=== PATIENT | female | born 1950 | race Caucasian/White ===

== ENCOUNTER → 2017-11-21 | Outpatient (CLI) | payer MEDICARE ==
[~2017-11-21] MED LIST: AMLO10; ASPI81CH PO; ATOR10 PO; ATOR40TA PO; AVANDAMET; B-12; BUME2 PO; BUSP5; CARI350; CARV3.125 PO; CELE100; CLOP75 PO; CYAN1000 PO; CYAN1000I IM; Cartia Xt180 MG PO; Crutch1 EACH MISC; DIABETIC MED; DULO30; DULO60 PO; DULOXETINE HCL60 MG; ESCI10; FENT25TP; FLUZONE HI180 MCG/04 IM; FURO20 PO; GABA100; GLIP10; GLIP5 PO; HYDACE5 PO; HYDCHL25; INSU100I6 SC; INSULANPEN SC; INSULIN; LEVSOD75 PO; METF500 PO; ONDA4 PO; OXYC5 PO; Omeprazole20 M1 PO; PERCOCET; PIOG15 PO; PIOGLITAZONE HC30 MG PO; PREG50 PO; Percocet 5-3251 EACH PO; RAMI1.25; ROSU10TA PO; SERT100 PO; SERT25 PO; Synthroid/Lev0.05 MG PO; TRADJENTA 5 MG; TRULICITY0.75 MG/0. SQ; VALS80 PO; VIT D PO; VITAMIN D35000 UNIT PO; [UNRECOGNIZED DRUG - OTHER]
[2017-11-21 16:59] LABS: Percent Saturation 17.6 % (15.0-50.0)
== END | disposition home or self-care (01) ==
LOC: LAB 11:40 → LAB SHORT 11:40
PROVIDERS: Internal Medicine Hematology & Oncology
DX: D50.9 Iron deficiency anemia, unspecified (principal)
CPT/HCPCS: 82728; 83540; 83550

== ENCOUNTER 2018-11-06 08:46 | Day surgery (SDC) | payer MEDICARE ==
[~2018-11-06] VITALS: Ht 165.1 cm; Wt 118.0 kg
[~2018-11-06 08:46] MED LIST changes: -ATOR40TA PO; +CHOL10002 PO; -CYAN1000I IM; +CYAN500 PO; +GABA100 PO; +Isosorbide Mono30 MG PO; +Lopressor 25 mg25 MG PO; -Omeprazole20 M1 PO; +PANT40 PO; -VITAMIN D35000 UNIT PO
--- NOTE | 2018-11-06 10:19 | NUR ---
PT RETURN TO RECOVERY. AWAKE, ALERT, CONVERSING WITH STAFF. SISTER AT BEDSIDE. NO C/O OF PAIN OR DISCOMFORT. NO BLEEDING OR SWELLING NOTED.
--- NOTE | 2018-11-06 12:26 | NUR ---
SUMMARY: PT HAD UNEVENTFUL POST OPERATIVE COURSE. NO C/O PAIN OR DISCOMFORT DURING RECOVERY PERIOD. NO BLEEDING OR SWELLING NOTED TO LEFT UPPER CHEST/NECK AREA. DRESSING IN PLACE AND TAPED FOR SECURITY. PT ATE, DRANK WITHOUT DIFFICULTY. VISITED WITH FAMILY AT BEDSIDE. DISCHARGE INSTRUCTIONS REVIEWED WITH PATIENT BY DARCIE CHOWDARY RN. PT VERBALIZED UNDERSTANDING OF ALL INSTRUCTIONS GIVEN. PT UP TO BEDSIDE TO DRESS WITH SBA FROM SISTER. IV D/C TIP INTACT.
== END 2018-11-06 12:30 | disposition home or self-care (01) ==
LOC: MHTC 08:46
DX: I12.0 Hypertensive chronic kidney disease with stage 5 chronic kidney disease or end stage renal disease (principal); E11.22 Type 2 diabetes mellitus with diabetic chronic kidney disease; N18.6 End stage renal disease; D63.1 Anemia in chronic kidney disease; E11.40 Type 2 diabetes mellitus with diabetic neuropathy, unspecified; E11.51 Type 2 diabetes mellitus with diabetic peripheral angiopathy without gangrene; J44.9 Chronic obstructive pulmonary disease, unspecified; Z79.899 Other long term (current) drug therapy
CPT/HCPCS: 99152; C1750; C1769; J1644; J2250; J3010; J7040

== ENCOUNTER 2020-11-19 08:24 | Day surgery (SDC) | payer MEDICARE ==
[~2020-11-19] VITALS: Ht 165.1 cm; Wt 109.0 kg
[~2020-11-19 08:24] MED LIST changes: +BASAGLAR K100 UNIT/1 SC; -INSULANPEN SC; +OMEP20ER PO
--- NOTE | 2020-11-19 12:44 | NUR ---
PATIENT ARRIVED BACK TO THE RECOVERY ROOM VIA RECLINER. SBAR RECEIVED FROM YOSSI AUGUSTINE. CLOTH DOT X 2 TO THE RIGHT FA/AC AREA. BRUIT FELT OVER THE LOWER CLOTH DOT. MONITOR APPLIED AND MEAL SERVED. PATIENT AWAKE. VVS. NO PAIN NOTED.
--- NOTE | 2020-11-19 14:11 | NUR ---
PATIENT DISCHARGED HOME VIA WHEELCHAIR WITH FAMILY FRIEND MARKET DEVELOPER.
== END 2020-11-19 15:16 | disposition home or self-care (01) ==
LOC: MHTC 08:24
DX: T82.9XXA Unspecified complication of cardiac and vascular prosthetic device, implant and graft, initial encounter (principal); I12.0 Hypertensive chronic kidney disease with stage 5 chronic kidney disease or end stage renal disease; N18.6 End stage renal disease; I45.10 Unspecified right bundle-branch block; E11.22 Type 2 diabetes mellitus with diabetic chronic kidney disease; E11.40 Type 2 diabetes mellitus with diabetic neuropathy, unspecified; J44.9 Chronic obstructive pulmonary disease, unspecified; E21.3 Hyperparathyroidism, unspecified; Z79.899 Other long term (current) drug therapy
CPT/HCPCS: 36905; 76937; 82947; 93005; 93010; 99152; 99153; C1725; C1769; C1887; C1894; C2623; J1644; J2250; J3010; J7030; J7040; J7050; Q9967

== ENCOUNTER 2021-05-03 17:03 | Inpatient (IN) | payer MEDICARE ==
[~2021-05-03] VITALS: Ht 167.6 cm; Wt 108.9 kg
[~2021-05-03 17:03] MED LIST changes: -BASAGLAR K100 UNIT/1 SC; -CLOP75 PO; -GABA100 PO; -Isosorbide Mono30 MG PO; -LEVSOD75 PO; -OMEP20ER PO; -TRULICITY0.75 MG/0. SQ
[2021-05-03 18:01] LABS: BASOPHILS PERCENT AUTO 0 % (0-2); EOSINOPHILS ABSOLUTE AUTO 0.01 K/mm3 (0.00-0.68); EOSINOPHILS PERCENT AUTO 0 % (0-6); Hematocrit 27.5 % (33.0-51.0); Hemoglobin 9.4 g/dL (11.5-16.0); IMMATURE GRAN ABSOLUTE AUTO 0.01 K/mm3 (0.00-0.10); IMMATURE GRAN PERCENT AUTO 0 % (0-1); LYMPHOCYTES ABSOLUTE AUTO 0.45 K/mm3 (0.84-5.20); LYMPHOCYTES PERCENT AUTO 10 % (21-46); MONOCYTES ABSOLUTE AUTO 0.15 K/mm3 (0.16-1.47); MONOCYTES PERCENT AUTO 4 % (4-13); Mean Corpuscular HGB 32.2 pg (26.0-34.0); Mean Corpuscular HGB Conc 34.2 g/dL (31.5-36.5); Mean Corpuscular Volume 94 fL (80-100); NEUTROPHILS ABSOLUTE AUTO 3.69 K/mm3 (1.96-9.15); NEUTROPHILS PERCENT AUTO 86 % (41-73); Platelet Count 77 K/mm3 (150-400); RDW Coefficient Variation 12.6 % (11.7-14.2); RDW Standard Deviation 43.8 fL (35.1-46.3); Red Blood Cell Count 2.92 M/mm3 (3.80-5.20); White Blood Cell Count 4.31 K/mm3 (4.00-11.30)
[2021-05-03 18:22] LABS: Albumin, Blood 2.2 g/dL (3.4-5.0); Albumin/Globulin Ratio 0.5 (0.8-1.8); Bilirubin, Total 0.4 mg/dL (0.1-1.0); Bun/Creatinine Ratio 5.7 (12.0-20.0); Creatinine, Blood 7.33 mg/dL (0.40-1.00); Globulin, Blood 4.4 g/dL (2.2-4.0); Magnesium, Blood 1.8 mg/dL (1.6-2.4); Potassium, Blood 3.8 mmol/L (3.5-5.5); Total Protein, Blood 6.6 g/dL (6.4-8.2); Troponin I 0.028 ng/mL (0.000-0.040)
[2021-05-03] MEDS ORDERED: TRULICITY0.75 MG/01 SC (19:35)
[2021-05-03] MEDS ORDERED: CLOP75 PO (19:36)
[2021-05-03] MEDS ORDERED: LEVSOD75 PO (19:36)
[2021-05-03] MEDS ORDERED: Isosorbide Mono30 MG PO (19:36)
[2021-05-03] MEDS ORDERED: OMEP20ER PO (19:37)
[2021-05-03] MEDS ORDERED: ZOLOFT100 M8 PO (19:38)
[2021-05-03] MEDS ORDERED: SERT50 PO (19:38)
[2021-05-03] MEDS ORDERED: GABA100 PO (19:38)
[2021-05-03] MEDS ORDERED: BASAGLAR K100 UNIT/3 SC (20:18)
--- NOTE | 2021-05-04 04:23 | NUR ---
SHIFT SUMMARY RECEIVED PT FROM ER NURSE MIRACLE. PT ALERT AND ORIENTED. PT EXPRESSES SHE LOSES HER TASTE AND SMELL. CALL DEVAN العلي. MEDS GIVEN SCHEDULED NO ACUTE DISTRESS AT THIS TIME.
[2021-05-04 04:49] LABS: Hematocrit 25.9 % (33.0-51.0); Hemoglobin 8.7 g/dL (11.5-16.0)
[2021-05-04 05:16] LABS: Anion Gap 10 mmol/L (6-16); Blood Urea Nitrogen 45 mg/dL (8-24); CO2, Blood 25 mmol/L (21-32); Calcium, Blood 7.6 mg/dL (8.5-10.1); Chloride, Blood 104 mmol/L (98-108); Creatinine, Blood 7.54 mg/dL (0.40-1.00); Glomerular Filtration Rate 5 (60-); Glucose, Blood 102 mg/dL (70-99); Magnesium, Blood 1.9 mg/dL (1.6-2.4); Phosphorus, Blood 4.2 mg/dL (2.5-4.9); Potassium, Blood 3.7 mmol/L (3.5-5.5); Sodium, Blood 139 mmol/L (136-145)
--- NOTE | 2021-05-04 06:09 | NUR ---
BLADDER SCAN 36 ML
--- NOTE | 2021-05-04 19:08 | NUR ---
SHIFT SUMMARY: PT A/O IND PLEASANT AND COOPERATIVE. PT ON RA AT THIS TIME. RECEIVING DIALYSIS. PT HAD NAUSEA TODAY. PT C/O DIARRHEA ONE TIME TODAY. AWARE, NO NEW ORDERS. PT HAD NO OTHER ACUTE CHANGES TODAY.
--- NOTE | 2021-05-05 04:08 | NUR ---
SHIFT SUMMARY ADMITTED FOR DIALYSIS. FULL CODE. COVID+. RENAL CONSULT IS DR. NG. AC CHEMSTICKS. WE DID GET SOME ANTACIDS & ACID REDUCERS ORDERED THIS SHIFT FOR [facility]ART[facility]URN. SHE DID GET DIALYSIS LAST NIGHT. AWAITING TO BE CLEARED FROM COVID+ STATUS SO SHE CAN AGAIN GET OUTPT DIALYSIS. SHE IS OLIGURIC. FISTULA IN LEFT FOREARM. RA.
--- NOTE | 2021-05-05 08:46 | NUR ---
[facility] [place] NEED FOR MANGLE ROLLER. PATIENT CAREGIVER FOR S.O. WHO IS SICKLY. 8 FALLS THIS YEAR WITH S.O. NOT BEING ABLE TO HELP HER.
--- NOTE | 2021-05-05 09:41 | NUR ---
AWARE IMDUR HELD DUE TO Benito BURDEN TO CHECK CHART.
--- NOTE | 2021-05-05 17:32 | NUR ---
ALERT. ORIENTED. PATIENT IS CAREGIVER FOR S.O. WITH [facility] AWARE OF SITUATION AT HOME AND WILL SEE WHAT COAL GRADER HAS TO OFFER. NONCOMPLIANT WITH RESPECTS TO CALLING FOR HELP TO BATHROOM. HX 8 FALLS THIS YEAR AT HOME. FISTULA RT UPPER ARM. UNLABORED RESPIRATIONS. WCTM
--- NOTE | 2021-05-06 03:58 | NUR ---
SHIFT SUMMARY ADMITTED FOR DIALYSIS. FULL CODE. SHE IS AN OUTPT DIALYSIS PT. WHEN SHE IS CLEARED FOR COVID+, SHE MAY RESUME OUTPT DIALYSIS. DR. NG IS RENAL CONSULT. SHE IS THE CAREGIVER FOR HER SPOUSE, THERE MAY BE SOME [employer] BI DEVELOPER NEEDS @ HOME. SHE IS OLIGURIC. FISTULA IN RT FOREARM. SHE IS AC CHEMSTICKS. HX OF FALLS AT HOME.
--- NOTE | 2021-05-06 17:29 | NUR ---
PATIENT IS ALERT AND ORIENTED AND COOPERATIVE WITH CARE. SHE HAD DIALYSIS IN HER ROOM TODAY. RIGHT ARM GRAFT. SHE HAS BEEN INDEPENDENT TO THE BATHROOM. NO NEW CONCERNS TODAY.
--- NOTE | 2021-05-07 04:04 | NUR ---
SHIFT SUMMARY ADMITTED FOR DIALYSIS. FULL CODE. COVID+. PLAN IS FOR OUTPT DIALYSIS TO RESUME WHEN SHE CAN BE CLEARED FOR COVID. RT ARM FISTULA. INDEPENDENT IN ROOM. AC CHEMSTICKS. I DID HAVE HER GLUCOSE TESTED @ HS SHE HAS BEEN KNOWN TO LEAN TOWARDS HYPOGLYCEMIC IN THE CHAIN TENDER HOURS. SHE IS OLIGURIC. DR. NG IS RENAL CONSULT. SHE IS CAREGIVER FOR HER SPOUSE. TUBE WRAPPER CONSULT THERE MAY BE SOME NEEDS @ HOME FOR HELP. HX OF FALLS. NO NEW CONCERNS THIS SHIFT.
[2021-05-07 05:03] LABS: Hematocrit 27.3 % (33.0-51.0); Hemoglobin 9.3 g/dL (11.5-16.0)
[2021-05-07 06:14] LABS: Anion Gap 6 mmol/L (6-16); Blood Urea Nitrogen 25 mg/dL (8-24); Bun/Creatinine Ratio 5.6 (12.0-20.0); CO2, Blood 31 mmol/L (21-32); Calcium, Blood 8.3 mg/dL (8.5-10.1); Chloride, Blood 104 mmol/L (98-108); Creatinine, Blood 4.46 mg/dL (0.40-1.00); Glomerular Filtration Rate 10 (60-); Glucose, Blood 63 mg/dL (70-99); Magnesium, Blood 1.7 mg/dL (1.6-2.4); Phosphorus, Blood 1.9 mg/dL (2.5-4.9); Potassium, Blood 3.7 mmol/L (3.5-5.5); Sodium, Blood 141 mmol/L (136-145)
--- NOTE | 2021-05-07 15:17 | NUR ---
DISCHARGE PATIENT TRANSPORTED VIA WHEELCHAIR TO [facility]. PATIENT IS DISCHARGING HOME. DISCHARGE INSTRUCTIONS EXPLAINED TO PATIENT. PATIENT STATED UNDERSTANDING. PACKET SENT WITH PATIENT. BELONGINGS SENT WITH PATIENT. IV REMOVED WITHOUT DIFFICULTY. NO NEW MEDICATIONS. [facility] TO SCHEDULE FOLLOW UP WITH PCP. PATIENT TO RETURN TO HER REGULAR OUTPATIENT DIALYSIS SCHEDULE.
--- NOTE | 2021-05-07 17:23 | NUR ---
Per Dr. Arreola discharge appropriate for 05/07/21. Spoke with patient and she is aware of discharge and does not oppose. Transportation coordinated through [facility] (patient completed COVID quarantine); patient will be transported to her residence. Patient is scheduled for dialysis on 05/08/20 at 0700 and also has a follow up with PCP scheduled for 05/12/21. Patient has Home Health coordinated through [facility]. No barriers to discharge at this time.
== END 2021-05-07 15:17 | disposition home health service (06) | DRG 682 ==
LOC: ER 17:03 → ERHOLD 17:04 → ER 17:04 → MEDS 17:04 → ERHOLD 21:21 → MEDS 21:21 → ERHOLD 05-04 16:22 → MEDS 05-04 16:22
PROVIDERS: Internal Medicine Nephrology; Physician Assistant; ADMIT Internal Medicine
PROC: 8E0ZXY6 Isolation (ICD-10-PCS; 2021-05-03)
PROC: 5A1D70Z Performance of Urinary Filtration, Intermittent, Less than 6 Hours Per Day (ICD-10-PCS; principal; 2021-05-04)
DX: I12.0 Hypertensive chronic kidney disease with stage 5 chronic kidney disease or end stage renal disease (principal); U07.1 COVID-19; J12.82 Pneumonia due to coronavirus disease 2019; N18.6 End stage renal disease; N25.81 Secondary hyperparathyroidism of renal origin; E83.39 Other disorders of phosphorus metabolism; Z68.38 Body mass index [BMI] 38.0-38.9, adult; I25.10 Atherosclerotic heart disease of native coronary artery without angina pectoris; E03.9 Hypothyroidism, unspecified; E08.21 Diabetes mellitus due to underlying condition with diabetic nephropathy; E66.01 Morbid (severe) obesity due to excess calories; D63.1 Anemia in chronic kidney disease; E88.09 Other disorders of plasma-protein metabolism, not elsewhere classified; Z79.4 Long term (current) use of insulin; Z79.02 Long term (current) use of antithrombotics/antiplatelets; Z79.899 Other long term (current) drug therapy; Z99.2 Dependence on renal dialysis; Z90.49 Acquired absence of other specified parts of digestive tract; Z90.710 Acquired absence of both cervix and uterus; Z98.84 Bariatric surgery status; Z98.890 Other specified postprocedural states
CPT/HCPCS: 36415; 71045; 80048; 80053; 80069; 82947; 83735; 84132; 84484; 85014; 85018; 85025; 93005; 93010; 96372; 96374; 96376; 97110; 97162; 97165; 97530; 99285-25; A9270; G0378; J0881; J1650; J1815; J2405; J7060

== ENCOUNTER → 2021-05-12 | Outpatient (CLI) | payer MEDICARE ==
[~2021-05-12] MED LIST changes: +BASAGLAR K100 UNIT/3 SC; +CLOP75 PO; +GABA100 PO; +Isosorbide Mono30 MG PO; +LEVSOD75 PO; +OMEP20ER PO; +SERT50 PO; +TRULICITY0.75 MG/01 SC; +ZOLOFT100 M8 PO
[2021-05-12 14:34] LABS: BASOPHILS ABSOLUTE AUTO 0.03 K/mm3 (0.00-0.23); BASOPHILS PERCENT AUTO 0 % (0-2); EOSINOPHILS ABSOLUTE AUTO 0.04 K/mm3 (0.00-0.68); EOSINOPHILS PERCENT AUTO 1 % (0-6); Hematocrit 32.4 % (33.0-51.0); Hemoglobin 11.1 g/dL (11.5-16.0); IMMATURE GRAN ABSOLUTE AUTO 0.08 K/mm3 (0.00-0.10); IMMATURE GRAN PERCENT AUTO 1 % (0-1); LYMPHOCYTES ABSOLUTE AUTO 1.17 K/mm3 (0.84-5.20); LYMPHOCYTES PERCENT AUTO 16 % (21-46); MONOCYTES ABSOLUTE AUTO 0.32 K/mm3 (0.16-1.47); MONOCYTES PERCENT AUTO 4 % (4-13); Mean Corpuscular HGB 32.3 pg (26.0-34.0); Mean Corpuscular HGB Conc 34.3 g/dL (31.5-36.5); Mean Corpuscular Volume 94 fL (80-100); Mean Platelet Volume 9.6 fL (9.1-12.4); NEUTROPHILS ABSOLUTE AUTO 5.57 K/mm3 (1.96-9.15); NEUTROPHILS PERCENT AUTO 77 % (41-73); Platelet Count 314 K/mm3 (150-400); RDW Coefficient Variation 14.1 % (11.7-14.2); RDW Standard Deviation 45.8 fL (35.1-46.3); Red Blood Cell Count 3.44 M/mm3 (3.80-5.20); White Blood Cell Count 7.21 K/mm3 (4.00-11.30)
== END ==
LOC: LAB SHORT 14:30
PROVIDERS: Family Medicine
DX: D64.9 Anemia, unspecified (principal)
CPT/HCPCS: 85025

== ENCOUNTER 2021-10-20 11:07 | Day surgery (SDC) | payer MEDICARE ==
[~2021-10-20] VITALS: Ht 165.1 cm; Wt 107.2 kg
== END 2021-10-20 13:55 | disposition home or self-care (01) ==
LOC: ORSCSDS 11:07
PROVIDERS: Orthopaedic Surgery
PROC: 0LN80ZZ Release Left Hand Tendon, Open Approach (ICD-10-PCS; principal; 2021-10-20 12:30)
DX: M65.312 Trigger thumb, left thumb (principal); I10 Essential (primary) hypertension; I25.2 Old myocardial infarction; J44.9 Chronic obstructive pulmonary disease, unspecified; K21.9 Gastro-esophageal reflux disease without esophagitis; E11.9 Type 2 diabetes mellitus without complications; Z79.01 Long term (current) use of anticoagulants; Z79.899 Other long term (current) drug therapy
CPT/HCPCS: 82947; J7030

== ENCOUNTER 2022-02-16 06:30 | Day surgery (SDC) | payer MEDICARE ==
[~2022-02-16] VITALS: Ht 165.1 cm; Wt 109.8 kg
[2022-02-16] MEDS ORDERED: METO25ER (07:06)
== END 2022-02-16 09:15 | disposition home or self-care (01) ==
LOC: ORSCSDS 06:30
PROVIDERS: Orthopaedic Surgery
PROC: 0LN80ZZ Release Left Hand Tendon, Open Approach (ICD-10-PCS; principal; 2022-02-16 08:00)
DX: M65.332 Trigger finger, left middle finger (principal); F41.9 Anxiety disorder, unspecified; F32.A Depression, unspecified; J44.9 Chronic obstructive pulmonary disease, unspecified; E11.40 Type 2 diabetes mellitus with diabetic neuropathy, unspecified; I10 Essential (primary) hypertension; E61.1 Iron deficiency; R80.9 Proteinuria, unspecified; E66.9 Obesity, unspecified; Z68.41 Body mass index [BMI] 40.0-44.9, adult; Z79.4 Long term (current) use of insulin; Z79.899 Other long term (current) drug therapy
CPT/HCPCS: 82947; J7030

== ENCOUNTER 2022-03-24 14:33 | Emergency (ER) | payer MEDICARE ==
[~2022-03-24] VITALS: Ht 165.1 cm; Wt 104.3 kg
[~2022-03-24 14:33] MED LIST changes: +METO25ER
[2022-03-24] MEDS ORDERED: BUMETANIDE2 M6 PO (14:48)
[2022-03-24] MEDS ORDERED: CALCIUM ACETAT667 M2 PO (14:48)
[2022-03-24] MEDS ORDERED: ATOR40TA PO (14:48)
[2022-03-24] MEDS ORDERED: ISOSORBIDE MONO30 MG PO (14:49)
[2022-03-24 15:21] LABS: BASOPHILS ABSOLUTE AUTO 0.02 K/mm3 (0.00-0.23); BASOPHILS PERCENT AUTO 0 % (0-2); EOSINOPHILS ABSOLUTE AUTO 0.05 K/mm3 (0.00-0.68); EOSINOPHILS PERCENT AUTO 1 % (0-6); Hemoglobin 12.2 g/dL (11.5-16.0); IMMATURE GRAN ABSOLUTE AUTO 0.02 K/mm3 (0.00-0.10); IMMATURE GRAN PERCENT AUTO 0 % (0-1); LYMPHOCYTES ABSOLUTE AUTO 0.97 K/mm3 (0.84-5.20); LYMPHOCYTES PERCENT AUTO 12 % (21-46); MONOCYTES ABSOLUTE AUTO 0.57 K/mm3 (0.16-1.47); MONOCYTES PERCENT AUTO 7 % (4-13); Mean Corpuscular HGB 31.9 pg (26.0-34.0); Mean Corpuscular HGB Conc 34.9 g/dL (31.5-36.5); Mean Corpuscular Volume 92 fL (80-100); Mean Platelet Volume 9.8 fL (9.1-12.4); NEUTROPHILS ABSOLUTE AUTO 6.79 K/mm3 (1.96-9.15); NEUTROPHILS PERCENT AUTO 81 % (41-73); Platelet Count 154 K/mm3 (150-400); RDW Coefficient Variation 12.8 % (11.7-14.2); RDW Standard Deviation 42.6 fL (35.1-46.3); Red Blood Cell Count 3.82 M/mm3 (3.80-5.20); White Blood Cell Count 8.42 K/mm3 (4.00-11.30)
[2022-03-24 15:42] LABS: Albumin, Blood 2.9 g/dL (3.4-5.0); Albumin/Globulin Ratio 0.7 (0.8-1.8); Bilirubin, Total 0.5 mg/dL (0.1-1.0); Bun/Creatinine Ratio 3.3 (12.0-20.0); Calcium, Blood 8.6 mg/dL (8.5-10.1); Creatinine, Blood 3.32 mg/dL (0.40-1.00); Globulin, Blood 4.3 g/dL (2.2-4.0); Magnesium, Blood 1.9 mg/dL (1.6-2.4); Potassium, Blood 3.2 mmol/L (3.5-5.5); Total Protein, Blood 7.2 g/dL (6.4-8.2)
[2022-04-05] MEDS ORDERED: Vitamin D1000 UNI1 PO (16:20)
[2022-04-05] MEDS ORDERED: FISH OIL 1,2001 EAC7 PO (16:20)
== END 2022-03-24 18:30 | disposition home or self-care (01) ==
LOC: ER 14:33
PROVIDERS: Student in an Organized Health Care Education/Training Program
DX: R20.2 Paresthesia of skin (principal); I12.0 Hypertensive chronic kidney disease with stage 5 chronic kidney disease or end stage renal disease; E11.22 Type 2 diabetes mellitus with diabetic chronic kidney disease; N18.6 End stage renal disease; E11.49 Type 2 diabetes mellitus with other diabetic neurological complication; Z79.4 Long term (current) use of insulin; Z79.899 Other long term (current) drug therapy; Z88.8 Allergy status to other drugs, medicaments and biological substances; Z99.2 Dependence on renal dialysis
CPT/HCPCS: 36415; 70450; 71045; 80053; 83735; 84484; 85025; 93005; 93010; 99285-25

== ENCOUNTER 2022-04-06 11:58 | Day surgery (SDC) | payer MEDICARE ==
[~2022-04-06] VITALS: Ht 165.1 cm; Wt 107.0 kg
[~2022-04-06 11:58] MED LIST changes: +ATOR40TA PO; +BUMETANIDE2 M6 PO; +CALCIUM ACETAT667 M2 PO; +FISH OIL 1,2001 EAC7 PO; +ISOSORBIDE MONO30 MG PO; +Vitamin D1000 UNI1 PO
--- NOTE | 2022-04-06 15:53 | NUR ---
PT BACK FROM THIRD HELPER. PT WITH TWO ACCESS SITES IN R UPPER ARM. BOTH CLOSED WITH PURSE STRING SUTURES. PT DENIES ANY PAIN. VSS. PT SITTING UP IN RECLINER EATING A SANDWHICH. WILL CONTINUE TO MONITOR.
--- NOTE | 2022-04-06 18:15 | NUR ---
BLEEDING OCCURED FROM BOTH ACCESS SITES WHEN PURSE STRING SUTURES REMOVED. MANUAL PRESSURE HELD TO THE MEDICAL SITE FOR 15MINUTES. HEMOSTATSIS ACHEIVED. SITE CLEAND AND CLOTH DOT DRESSING APPLIED. SECOND LATERAL SITE, MANUAL PRESSURE HELP [id number]. HEMOSTASIS ACHIEVED. VSS. NO HEMATOMA FORMED AT EITHER SITE. WILL CONTINUE TO MONITOR.
--- NOTE | 2022-04-06 18:42 | NUR ---
DISCHARGE PT DRESSED SELF WITH NO COMPLICATIONS. BOTH ACCESS SITES REMAIN STABLE WITH NO BLEEDING, OOZING OR HEMATOMAS. PT DENIES ANY PAIN. VSS. IV DCD WITH CATH INTACT. PT STATES HER UNDERSTANDING OF SITE CARE AND DC INSTRUCTIONS AND DENIES ANY QUESTIONS OR CONCERNS UPON DC. PT TAKEN TO EXIT VIA WHEELCHAIR WHERE HER WAS WAITING WITH VEHICLE.
== END 2022-04-06 23:01 | disposition home or self-care (01) ==
LOC: MHTC 11:58
DX: T82.590A Other mechanical complication of surgically created arteriovenous fistula, initial encounter (principal); N18.6 End stage renal disease
CPT/HCPCS: 36905; 76937; 99152; 99153; C1725; C1769; C1887; C1894; J1644; J2250; J2997; J3010; J7030; Q9967

== ENCOUNTER 2022-06-08 12:05 | Inpatient (IN) | payer MEDICARE ==
[~2022-06-08] VITALS: Ht 165.1 cm; Wt 103.1 kg
[2022-06-08 14:14] LABS: Albumin/Globulin Ratio 0.7 (0.8-1.8); Bilirubin, Total 0.4 mg/dL (0.1-1.0); Bun/Creatinine Ratio 5.3 (12.0-20.0); Calcium, Blood 9.3 mg/dL (8.5-10.1); Creatinine, Blood 4.87 mg/dL (0.40-1.00); Globulin, Blood 4.4 g/dL (2.2-4.0); Potassium, Blood 3.8 mmol/L (3.5-5.5); Total Protein, Blood 7.4 g/dL (6.4-8.2)
[2022-06-08 14:19] LABS: BASOPHILS ABSOLUTE AUTO 0.02 K/mm3 (0.00-0.23); BASOPHILS PERCENT AUTO 0 % (0-2); EOSINOPHILS ABSOLUTE AUTO 0.12 K/mm3 (0.00-0.68); EOSINOPHILS PERCENT AUTO 2 % (0-6); Hematocrit 31.6 % (33.0-51.0); Hemoglobin 11.1 g/dL (11.5-16.0); IMMATURE GRAN ABSOLUTE AUTO 0.01 K/mm3 (0.00-0.10); IMMATURE GRAN PERCENT AUTO 0 % (0-1); LYMPHOCYTES ABSOLUTE AUTO 1.35 K/mm3 (0.84-5.20); LYMPHOCYTES PERCENT AUTO 23 % (21-46); MONOCYTES ABSOLUTE AUTO 0.39 K/mm3 (0.16-1.47); MONOCYTES PERCENT AUTO 7 % (4-13); Mean Corpuscular HGB 32.4 pg (26.0-34.0); Mean Corpuscular HGB Conc 35.1 g/dL (31.5-36.5); Mean Corpuscular Volume 92 fL (80-100); Mean Platelet Volume 9.6 fL (9.1-12.4); NEUTROPHILS PERCENT AUTO 67 % (41-73); Platelet Count 181 K/mm3 (150-400); RDW Standard Deviation 43.8 fL (35.1-46.3); Red Blood Cell Count 3.43 M/mm3 (3.80-5.20); White Blood Cell Count 5.79 K/mm3 (4.00-11.30)
[2022-06-08] MEDS ORDERED: Acetaminophen650 M1 PO (18:12)
[2022-06-08] MEDS ORDERED: CALCIUM ACETAT667 M2 PO (18:34)
--- NOTE | 2022-06-08 18:53 | NUR ---
ADMIT/SHIFT SUMMARY: PATIENT ADMIT TO PCU 02 AT 1808. ABLE TO STAND AND TRANSFER WITH SBA. ALERT AND ORIENTED X4. CHRONIC NEUROPATHY IN BILATERAL FEET. PERRLA, WEARING GLASSES. DOES NOT USE WALKER OR CANE. ON ROOM AIR, LUNGS SOUNDING CLEAR. TELE SHOWING SINUS GENNARO WITH HR 50'S. BP SLIGHTLY ELEVATED. DENIES CHEST PAIN AT THIS TIME. STATES CHEST PAIN COMES AND GOES, BUT WORSENS WITH ACTIVITY. DIALYSIS PATIENT WITH RIGHT FOREARM FISTULA WNL. DR. NG NOTIFIED AND CONSULT ORDERS IN PLACE. RENAL DIET. MED REC COMPLETED. PATIENT STATES SHE QUIT MOST OF HER MEDS AND ONLY TAKES THE ONES RECORDED IN MED REC. CARDIOLOGY CONSULT IN PLACE AND PLAN FOR NPO AT MIDNIGHT. ECHO ORDERS IN PLACE WELL. CALL LIGHT IN REACH. ORIENTED TO ROOM/UNIT.
[2022-06-09 03:54] LABS: BASOPHILS ABSOLUTE AUTO 0.01 K/mm3 (0.00-0.23); BASOPHILS PERCENT AUTO 0 % (0-2); EOSINOPHILS ABSOLUTE AUTO 0.13 K/mm3 (0.00-0.68); EOSINOPHILS PERCENT AUTO 2 % (0-6); Hematocrit 29.4 % (33.0-51.0); Hemoglobin 10.3 g/dL (11.5-16.0); IMMATURE GRAN ABSOLUTE AUTO 0.02 K/mm3 (0.00-0.10); IMMATURE GRAN PERCENT AUTO 0 % (0-1); LYMPHOCYTES ABSOLUTE AUTO 1.65 K/mm3 (0.84-5.20); LYMPHOCYTES PERCENT AUTO 29 % (21-46); MONOCYTES ABSOLUTE AUTO 0.43 K/mm3 (0.16-1.47); MONOCYTES PERCENT AUTO 8 % (4-13); Mean Corpuscular HGB 32.4 pg (26.0-34.0); Mean Corpuscular Volume 93 fL (80-100); Mean Platelet Volume 9.7 fL (9.1-12.4); NEUTROPHILS ABSOLUTE AUTO 3.42 K/mm3 (1.96-9.15); NEUTROPHILS PERCENT AUTO 60 % (41-73); Platelet Count 163 K/mm3 (150-400); RDW Coefficient Variation 12.8 % (11.7-14.2); RDW Standard Deviation 43.3 fL (35.1-46.3); Red Blood Cell Count 3.18 M/mm3 (3.80-5.20); White Blood Cell Count 5.66 K/mm3 (4.00-11.30)
[2022-06-09 04:18] LABS: Albumin, Blood 2.7 g/dL (3.4-5.0); Albumin/Globulin Ratio 0.7 (0.8-1.8); Bilirubin, Total 0.5 mg/dL (0.1-1.0); Bun/Creatinine Ratio 5.1 (12.0-20.0); Calcium, Blood 8.7 mg/dL (8.5-10.1); Creatinine, Blood 5.64 mg/dL (0.40-1.00); Globulin, Blood 3.9 g/dL (2.2-4.0); Magnesium, Blood 2.1 mg/dL (1.6-2.4); Phosphorus, Blood 4.8 mg/dL (2.5-4.9); Potassium, Blood 3.6 mmol/L (3.5-5.5); Total Protein, Blood 6.6 g/dL (6.4-8.2)
--- NOTE | 2022-06-09 05:20 | NUR ---
SHIFT SUMMARY: PT A&O X 4. USES CALL LIGHT APPROPRIATELY. PT SINUS GENNARO WITH RATE IN THE 50'S THROUGHOUT THE NIGHT, SBP 130'S. VSS THROUGHOUT THE NIGHT. PT NPO AFTER MIDNIGHT IN PREPARTION FOR ANGIO THIS MORNING. PT REMAINED ON BEDREST FOR THE NIGHT. PT UNABLE TO SLEEP MUCH. WILL CONTINUE TO MONITOR UNTIL ONCOMING RN ARRIVES.
--- NOTE | 2022-06-09 09:53 | NUR ---
AM NOTE: PATIENT ALERT AND ORIENTED X4. BLE CHRONIC NEUROPATHY. HOME GABAPENTIN ORDERED. UP TO BATHROOM WITH SBA. WEARING GLASSES, PERRLA. ON ROOM AIR SATING ABOVE 95% WITH LUNGS SOUNDING CLEAR. DENIES SOB/COUGH. TELE SHOWING SINUS GENNARO THIS AM WITH HR 50'S. ONE EPISODE OF VTACH WITH HR 100-110'S WHEN UP TO BATHROOM. AT THAT TIME PATIENT EXPERIENCED SOME MILD CHEST PAIN AND DIZZINESS. ECHO COMPLETED AND TAKEN TO [facility] FOR ANGIO AT 0915. PPP. NO SIGNS OF EDEMA. FISTULA TO RIGHT FOREARM. PLAN FOR DIALYSIS POST ANGIOGRAM. FISTUAL WNL. DENIES ABDOMINAL PAIN/NAUSEA. NPO THIS AM FOR ANGIO. UP TO BATHROOM TO VOID WITH ONE PERSON ASSIST.
--- NOTE | 2022-06-09 13:51 | NUR ---
POST ANGIO PATIENT TAKEN TO DIALYSIS. RIGHT GROIN SITE SOFT AND NONTENDER. LAYING FLAT PER ORDERS. POST VITALS IN COMPLETE. DENIES CHEST PAIN/PRESSURE. HR 50-60'S. DISTAL PEDAL PULSES REMAIN STRONG. PATIENT COMPLAINING OF SOME NUMBNESS IN FEET DUE TO NEUROPATHY. PATIENT COMPLAINING OF NAUSEA DURING DIALYSIS AND SOME SHAKING DUE TO BEING SO COLD. DR. LUKE CALLED AND NEW ORDERS IN PLACE FOR IV ZOFRAN. PATIENT BACK IN PCU 02 POST DIALYSIS AND FEELING BETTER. VITALS AND RIGHT GROIN SITE WNL. CALL LIGHT IN REACH.
--- NOTE | 2022-06-09 15:26 | NUR ---
PATIENT TELE SHOWING BIGEM WITH COUPLETS. DR. ORDOÑEZ CALLED TO UPDATE. DR. ORDOÑEZ AWARE. NO NEW ORDERS. SEE FINAL COAT SPRAYER PROCEDURE NOTE FOR DR. ORDOÑEZ RECOMMENDATIONS OF POSSIBLE LIFE VEST UPON DISCHARGE. PATIENT HAVING HEADACHE. DR. LUKE CALLED. NEW ORDERS FOR TYLENOL. VITAL SIGNS REMAIN STABLE. RIGHT GROIN SITE WNL.
--- NOTE | 2022-06-09 17:40 | NUR ---
SHIFT SUMMARY: VITAL SIGNS REMAIN STABLE. SEE PREVIOUS NOTES FOR UPDATES. PATIENT UP TO BSC WITH ONE PERSON ASSIST POST ANGIO GROIN PRECAUTIONS OF LAYING FLAT FOR 6 HOURS. GROIN SITE REMAINS SOFT AND NONTENDER. TELE CONTINUES TO SHOW SB WITH HR 50-60'S WELL PVC COUPLETS. PPP. DENIES CHEST PAIN/PRESSURE POST ANGIO. REMAINS ON ROOM AIR. MEDICATED X1 FOR TYLENOL. EATING DINNER AT THIS TIME. CALLING FOR NEEDS/ASSISTANCE. WILL CONTINUE TO MONITOR AND REPORT OFF TO ONCOMING RN.
--- NOTE | 2022-06-10 04:49 | NUR ---
SHIFT SUMMARY NO ACUTE CHANGES THIS SHIFT, VSS. AXO. IN SB WITH PVC'S - BI/TRIGEM AT TIMES. ON RA. CONTINENT. R GROIN SITE DRESSING CDI, SITE WITHOUT HEMATOMA OR SIGN OF BLEEDING. PT DENYING CP/PRESSURE. PT STATES SHE HAS A FEW QUESTIONS FOR THE DOT NET DEVELOPER IN THE AM REGARDING FORECASTED INTERVENTION BUT HAS OTHERWISE RESTED T/O MAJORITY OF SHIFT.
[2022-06-10 04:58] LABS: Hematocrit 29.1 % (33.0-51.0); Hemoglobin 10.1 g/dL (11.5-16.0)
[2022-06-10 05:23] LABS: Albumin, Blood 2.6 g/dL (3.4-5.0); Anion Gap 6 mmol/L (6-16); Blood Urea Nitrogen 25 mg/dL (8-24); CO2, Blood 34 mmol/L (21-32); Calcium, Blood 8.3 mg/dL (8.5-10.1); Chloride, Blood 98 mmol/L (98-108); Creatinine, Blood 4.99 mg/dL (0.40-1.00); Glomerular Filtration Rate 9 (60-); Glucose, Blood 150 mg/dL (70-99); Magnesium, Blood 2.1 mg/dL (1.6-2.4); Phosphorus, Blood 3.4 mg/dL (2.5-4.9); Potassium, Blood 4.3 mmol/L (3.5-5.5); Sodium, Blood 138 mmol/L (136-145)
--- NOTE | 2022-06-10 09:22 | NUR ---
ASSUMED CARE REPORT FROM KEITH SY AT 0700. PT RESTING IN BED. A&OX 4. ANSWERS QUESTIONS APPROPRIATELY. FOLLOWS COMMANDS. DENIES COMPLAINTS AT THIS TIME. HAS QUESTIONS REGARDING HOW LONG SHE WILL BE HOSPITALIZED. SR c PVCS ON MONITOR. RATE 60-70'S. BP STABLE. DENIES DIZZNESS, SOB OR CP. RIGHT GROIN SITE WNL. FISTULA TO RIGHT ARM, THRILL NOTED. NO PLANS FOR DIALYSIS TODAY. PT ABLE TO MAKE NEEDS KNOWN AND REPOSITION SELF IN BED NEEDED. WILL CONTINUE TO MONITOR.
--- NOTE | 2022-06-10 15:03 | NUR ---
SUSTAINED VT/SMITA ROUNDS PT UP TO SHOWER, WHEN RETURNED TO BED AND PLACED ON TELE APPROX 3 MINUTES OF SUSTAINED VTACH. PT REPORTED DIZZINESS AND CHEST PRESSURE DURING EPISODE. SELF RESOLVED, CONTINUED TO HAVE FREQUENT PVCS. DR ORDOÑEZ UPDATED, ROUNDED, PT MEDICATED c METOPROLOL 25 MG PO. PLAN- PT TO REMAIN IN PCU. MONITOR EFFECTIVENESS OF METOPROLOL AT DECREASING PVCS AND VT. MAY NEED TO INCREASE DOSE IF RATE PERMITS OR ADD AMIODORONE. PT MAY NEED ICD PLACED. WILL CONTINUE TO MONITOR OVER WEEKEND FOR EFFECTIVENESS OF MEDS.
--- NOTE | 2022-06-10 17:49 | NUR ---
SHIFT SUMMARY SEE PREVIOUS NOT REGARDING SUSTAINED VT. p MEDICATION c METOPROLOL, FEWER PVCS NOTED, STILL DID HAVE TWO RUNS GREATER THAN 9 BEATS. CHANGED ACTIVITY TO BEDREST, PT AGREEABLE. ASYMPTOMATIC UNLESS ACTIVE. NEURO WNL. SB c PVCS, BP STABLE. LUNGS CLEAR. PLAN FOR ICD MONDAY OR MONDAY. NO DIALYSIS THIS SHIFT. ABLE TO REPOSITION SELF IN BED AND MAKES NEEDS KNOW. WILL CONTINUE TO MONITOR UNTIL REPORT TO ONCOMING NURSE.
--- NOTE | 2022-06-11 04:18 | NUR ---
PATIENT HANDOFF REPORT GIVEN TO JANES SY AT 0300. PT IS A/OX4. NO ACUTE EVENTS. PT HR WAS BETWEEN 40-50 WHILE SLEEPING AND 80S WHILE AWAKE. PT HAS NO NEW COMPLAINTS.
[2022-06-11 06:11] LABS: BASOPHILS ABSOLUTE AUTO 0.01 K/mm3 (0.00-0.23); BASOPHILS PERCENT AUTO 0 % (0-2); EOSINOPHILS ABSOLUTE AUTO 0.15 K/mm3 (0.00-0.68); EOSINOPHILS PERCENT AUTO 2 % (0-6); Hematocrit 29.2 % (33.0-51.0); Hemoglobin 10.2 g/dL (11.5-16.0); IMMATURE GRAN ABSOLUTE AUTO 0.01 K/mm3 (0.00-0.10); IMMATURE GRAN PERCENT AUTO 0 % (0-1); LYMPHOCYTES ABSOLUTE AUTO 1.57 K/mm3 (0.84-5.20); LYMPHOCYTES PERCENT AUTO 23 % (21-46); MONOCYTES ABSOLUTE AUTO 0.39 K/mm3 (0.16-1.47); MONOCYTES PERCENT AUTO 6 % (4-13); Mean Corpuscular HGB 32.8 pg (26.0-34.0); Mean Corpuscular HGB Conc 34.9 g/dL (31.5-36.5); Mean Corpuscular Volume 94 fL (80-100); NEUTROPHILS ABSOLUTE AUTO 4.76 K/mm3 (1.96-9.15); NEUTROPHILS PERCENT AUTO 69 % (41-73); Platelet Count 151 K/mm3 (150-400); RDW Coefficient Variation 12.9 % (11.7-14.2); Red Blood Cell Count 3.11 M/mm3 (3.80-5.20); White Blood Cell Count 6.89 K/mm3 (4.00-11.30)
[2022-06-11 06:38] LABS: Bun/Creatinine Ratio 6.4 (12.0-20.0); Calcium, Blood 8.4 mg/dL (8.5-10.1); Creatinine, Blood 6.27 mg/dL (0.40-1.00); Magnesium, Blood 2.1 mg/dL (1.6-2.4); Potassium, Blood 4.3 mmol/L (3.5-5.5)
--- NOTE | 2022-06-11 07:53 | NUR ---
NURSING PCU DAYSHIFT: Assumed care of pt at approx 0700. A/O, very pleasant, cooperative w/care. Repositions and changes positions independently and w/o difficulty. Denies any pain/discomfort at rest. Skin is fragile though intact w/no noted breakdown, R groin site r/t recent angiogram which is recovered. Tele in place, SB w/first degree, no c/o CP/pressure, SBP 122 prior to a.m. meds, no noted edema. L/S cta t/o, O2 sat upper 90's on RA, denies dyspnea, no noted cough. Abd SNT, BT+, voiding w/o difficulty per pt. LFA PIV x1 s/l, fistula w/+ bruit/thrill to RFA. No s/s of acute distress this a.m. Seen by PMD and nephrology, awaiting new d/o. Pt denies any current needs or questions regarding plan of care. Plan for HD this a.m. Call light in reach, able to use w/o difficulty. Cont to monitor for any changes.
--- NOTE | 2022-06-11 17:37 | NUR ---
NURSING PCU DAYSHIFT SUMMARY: No significant changes noted t/o the shift. To HD this a.m. via bed, tolerated well. Remained SB t/o majority of this shift w/short runs of PVC's as well as occasional periods of bigeminy/trigeminy. Telephone update provided to reserve officer, plan of care discussed. NPO at 2400 06/12 for ICD placement 06/13. Plan discussed w/pt and family, questions answered. Pt denies any other questions/needs at this time. Pt currently sitting on edge of bed waiting for supper. Call light in reach, cont to monitor until rpt is given to NOC RN.
[2022-06-12 03:53] LABS: Hematocrit 29.9 % (33.0-51.0); Hemoglobin 10.3 g/dL (11.5-16.0)
[2022-06-12 04:14] LABS: Albumin, Blood 2.6 g/dL (3.4-5.0); Anion Gap 5 mmol/L (6-16); Blood Urea Nitrogen 26 mg/dL (8-24); Bun/Creatinine Ratio 5.6 (12.0-20.0); CO2, Blood 35 mmol/L (21-32); Calcium, Blood 8.6 mg/dL (8.5-10.1); Chloride, Blood 100 mmol/L (98-108); Creatinine, Blood 4.67 mg/dL (0.40-1.00); Glomerular Filtration Rate 9 (60-); Glucose, Blood 139 mg/dL (70-99); Phosphorus, Blood 3.7 mg/dL (2.5-4.9); Potassium, Blood 4.3 mmol/L (3.5-5.5); Sodium, Blood 140 mmol/L (136-145)
--- NOTE | 2022-06-12 04:44 | NUR ---
SHIFT SUMMARY PT IS A/Ox4 AND IS COOPERATIVE WITH CARE PROVIDED BY MEMBERS OF STAFF. ABLE TO MAKE NEEDS KNOWN AND HAS SLEPT T/O MOST OF THE NIGHT. NO EPISODES OF VTACH DURING THIS SHIFT FOR PT RNAGED FROM SB-SR 50-80'S. NO CP OR PRESSURE REPORTED T/O THE SHIFT. MAINTAINS SPO2 >94% ON RA WITH NO SOB OR DYSPNEA NOTED EVEN WITH REPOSITIONING/ABULATION. PT IS CONTINENT, BUT HAS NOT PRODUCE MUCH URINE FOR SHE RECEIVES HD. LAST HD SESSION WAS 06/11. PT WILL UNDERGO ICD PLACEMENT ON 06/13. RIGHT GROIN ACCESS SITE FROM ANGIO ON 06/10 HAS BEEN FULLY RECOVERED WITH NO SIGNS OF SWELLING, HEMATOMA, REDNESS, OR BLEEDING NOTED. VSS AND NADN T/O THE SHIFT, [facility] RE[facility]
--- NOTE | 2022-06-12 10:29 | NUR ---
Am note Pt alert, oriented x4; calm and cooperative with care. Pt sba in room, reposition self in bed. Pt denies pain, chest pain/pressure, sob, nausea and dizziness. Pt reports baseline neuropathy to ble. Tele sinus elodia. 55-58 this am, bp stable. Spo2 <90% on ra, breathing even and unlabored. Abs soft nontender with normoactive bt. Other vss. No other acute changes noted. Will continue to monitor.
--- NOTE | 2022-06-12 17:44 | NUR ---
Shift Summary No acute changes noted t/o shift. Plans for npo at midnight for icd placement tomorrow. Vss remain stable. Will continue to monitor until report given to oncoming rn.
[2022-06-13 04:41] LABS: Hematocrit 28.4 % (33.0-51.0); Hemoglobin 9.8 g/dL (11.5-16.0)
[2022-06-13 05:10] LABS: Albumin, Blood 2.6 g/dL (3.4-5.0); Anion Gap 8 mmol/L (6-16); Blood Urea Nitrogen 34 mg/dL (8-24); CO2, Blood 32 mmol/L (21-32); Calcium, Blood 8.3 mg/dL (8.5-10.1); Chloride, Blood 98 mmol/L (98-108); Creatinine, Blood 5.68 mg/dL (0.40-1.00); Glomerular Filtration Rate 7 (60-); Glucose, Blood 128 mg/dL (70-99); Phosphorus, Blood 4.2 mg/dL (2.5-4.9); Potassium, Blood 4.4 mmol/L (3.5-5.5); Sodium, Blood 138 mmol/L (136-145)
--- NOTE | 2022-06-13 06:12 | NUR ---
CURTAIN HEMMER AUTOMATIC SUMMARY PT IS ALERT AND ORIENTED COMMUNICATING APPROPRIATELY W STAFF THIS SHIFT. PT HAD NO OVERNIGHT EVENTS SHE SLEPT COMFORTABLY FOR MOST OF THE SHIFT. BP SLIGHTLY ELEVATED THIS AM W SBP IN THE 160'S. TELE SHOWING SB IN THE 50'S FOR MOST OF THE NIGHT. PT AFEBRILE. PT DENYING ANY PAIN OR NAUSEA THIS SHIFT. PT NPO SINCE MIDNIGHT FOR POSSIBLE PROCEDURE. WILL REPORT TO ONCOMING RN.
--- NOTE | 2022-06-13 07:49 | NUR ---
Am note Pt alert, oriented x4; calm and cooperative with care. Pt resting in bed, up to bathroom with sba. Pt remains NPO for procedure this am. Educated pt on post procedure activity restrictions and answered questions regarding procedure. Pt denies pain, chest pain/pressure, sob, nauses, and dizziness. Tele sinus elodia 40-50's, bp stable. Nonpitting edema noted to ble. Spo2 >90% on ra, breathing even and unlabored. Abd slightlt distended, normal for patient, soft, nontender. Right groin site c/d/i. Other vss. No other acute changes noted. Will continue to monitor unitl report given to oncoming rn.
--- NOTE | 2022-06-13 18:24 | NUR ---
Shift Summary Pt had ICD placed this am, left chest wall dressing, scant amount of blood noted. Pt educated on activity restrictions and sling placed on left side. HD this afternoon. During HD pt had run of vtach, asymptomatic and vss, Dr Valdes notified. This evening pt having frequent runs of vtach progressivly getting longer, pt continues to be asymptomatic, notified Dr Valdes, new orders to give metoprolol suc 25 mg po now and start metoprolol suc 50 mg daily in the am. Other vss. No other acute changes noted. Will continue to monitor unitl report given to oncoming rn.
--- NOTE | 2022-06-14 00:01 | NUR ---
UPDATE PT HAVING LOW BP W DBP AT 40 SO PROVIDER CONTACTED. PT RECIEVED EXTRA DOSE OF METOPROLOL ON DAYSHIFT AND PROVIDER NOTIFIED OF THIS. PT ASYMPTOMATIC OF LOW BP SO PROVIDER ORDERS TO JUST MONITOR AT THIS TIME. RUCHING MACHINE OPERATOR NOTIFIED.
[2022-06-14 05:24] LABS: BASOPHILS ABSOLUTE AUTO 0.02 K/mm3 (0.00-0.23); BASOPHILS PERCENT AUTO 0 % (0-2); EOSINOPHILS ABSOLUTE AUTO 0.13 K/mm3 (0.00-0.68); EOSINOPHILS PERCENT AUTO 2 % (0-6); Hematocrit 29.9 % (33.0-51.0); Hemoglobin 10.4 g/dL (11.5-16.0); IMMATURE GRAN ABSOLUTE AUTO 0.02 K/mm3 (0.00-0.10); IMMATURE GRAN PERCENT AUTO 0 % (0-1); LYMPHOCYTES ABSOLUTE AUTO 1.69 K/mm3 (0.84-5.20); LYMPHOCYTES PERCENT AUTO 23 % (21-46); MONOCYTES ABSOLUTE AUTO 0.45 K/mm3 (0.16-1.47); MONOCYTES PERCENT AUTO 6 % (4-13); Mean Corpuscular HGB 32.3 pg (26.0-34.0); Mean Corpuscular HGB Conc 34.8 g/dL (31.5-36.5); Mean Corpuscular Volume 93 fL (80-100); Mean Platelet Volume 10.2 fL (9.1-12.4); NEUTROPHILS ABSOLUTE AUTO 5.21 K/mm3 (1.96-9.15); NEUTROPHILS PERCENT AUTO 69 % (41-73); Platelet Count 146 K/mm3 (150-400); RDW Coefficient Variation 12.8 % (11.7-14.2); RDW Standard Deviation 43.8 fL (35.1-46.3); Red Blood Cell Count 3.22 M/mm3 (3.80-5.20); White Blood Cell Count 7.52 K/mm3 (4.00-11.30)
[2022-06-14 05:54] LABS: Albumin, Blood 2.5 g/dL (3.4-5.0); Anion Gap 6 mmol/L (6-16); Blood Urea Nitrogen 23 mg/dL (8-24); CO2, Blood 32 mmol/L (21-32); Chloride, Blood 97 mmol/L (98-108); Creatinine, Blood 4.62 mg/dL (0.40-1.00); Glomerular Filtration Rate 9 (60-); Glucose, Blood 151 mg/dL (70-99); Phosphorus, Blood 3.3 mg/dL (2.5-4.9); Potassium, Blood 4.3 mmol/L (3.5-5.5); Sodium, Blood 135 mmol/L (136-145)
--- NOTE | 2022-06-14 05:55 | NUR ---
RIVET HEATER GAS SUMMARY PT IS ALERT AND ORIENTED COMMUNICATING APPROPRIATELY W STAFF. TELE SHOWING SINUS ARRYTHMIA W PVC'S WHICH BECAME MUCH LESS FREQUENT THE SHIFT WENT ON. BP LABILE THIS SHIFT HER BP DROPPED AT MIDNIGHT W A DBP OF 40 SO PROVIDER CONTACTED. PT ASYMPTOMATIC OF BP AND MAP WAS >60 SO PROVIDER INSTRUCTED THIS RN TO JUST CONTINUE TO MONITOR. SPO2 >92% ON RM AIR. PT'S R GROIN AND LCW HAS NO TENDERNESS OR S/S OF BLEEDING OR HEMATOMA. PT ABLE TO SLEEP COMFORTABLY FOR MOST OF THE NIGHT. WILL REPORT TO ONCOMING RN.
[2022-06-14] MEDS ORDERED: Amiodarone HCl200 MG PO (15:31)
[2022-06-14] MEDS ORDERED: ATOR80 PO (15:32)
[2022-06-14] MEDS ORDERED: ASPI81CH PO (15:32)
[2022-06-14] MEDS ORDERED: BUME2 PO (15:32)
[2022-06-14] MEDS ORDERED: CEPH500 PO (15:33)
[2022-06-14] MEDS ORDERED: METO50ER PO (15:34)
[2022-06-14] MEDS ORDERED: Isosorbide Mono30 MG PO (15:34)
[2022-06-14] MEDS ORDERED: CLOP75 PO (15:35)
[2022-06-14] MEDS ORDERED: TRAM50 PO (15:36)
--- NOTE | 2022-06-14 17:48 | NUR ---
Shift Summary Pt alert, oriented x4; calm and cooperative with care. Pt resting in bed, up with sba in room. This evening pt reports dizziness and intermittent nausea when getting up, pt states they pass quickly, when asked when this started pt states it has been happening for months, notified MD, plans to follow up as outpatient for additional information. Pt denies pain, chest pain/pressure, and sob t/o shift. Tele has been bigeminy and vtach runs, Dr Valdes aware. Dr Valdes at bedside for device interogation this am. New order for amiodarone 200 mg po bid. Pt to dialysis this am. No other acute changes noted. Educated pt on discharge instructions, follow up appointments and medications. Pt plans to roller picker medication tomorrow. Educated pt on community resources and provided information on meals on wheels. [facility] home health order, educated pt that they will contact them to schedule admission. Vss. No other acute changes noted. Pt left room via wheelchair.
== END 2022-06-14 17:43 | disposition home health service (06) | DRG 224 ==
LOC: ER 12:05 → PCU 15:23
PROVIDERS: Emergency Medicine; Family Medicine; Internal Medicine Nephrology; ADMIT Internal Medicine
PROC: 4A023N7 Measurement of Cardiac Sampling and Pressure, Left Heart, Percutaneous Approach (ICD-10-PCS; 2022-06-09)
PROC: B211YZZ Fluoroscopy of Multiple Coronary Arteries using Other Contrast (ICD-10-PCS; 2022-06-09)
PROC: B240ZZ3 Ultrasonography of Single Coronary Artery, Intravascular (ICD-10-PCS; 2022-06-09)
PROC: 5A1D70Z Performance of Urinary Filtration, Intermittent, Less than 6 Hours Per Day (ICD-10-PCS; 2022-06-10)
PROC: 0JH608Z Insertion of Defibrillator Generator into Chest Subcutaneous Tissue and Fascia, Open Approach (ICD-10-PCS; principal; 2022-06-13)
PROC: 02H63KZ Insertion of Defibrillator Lead into Right Atrium, Percutaneous Approach (ICD-10-PCS; 2022-06-13)
PROC: 02HK3KZ Insertion of Defibrillator Lead into Right Ventricle, Percutaneous Approach (ICD-10-PCS; 2022-06-13)
DX: I47.20 Ventricular tachycardia, unspecified (principal); N18.6 End stage renal disease; I12.0 Hypertensive chronic kidney disease with stage 5 chronic kidney disease or end stage renal disease; E11.51 Type 2 diabetes mellitus with diabetic peripheral angiopathy without gangrene; I49.5 Sick sinus syndrome; E78.5 Hyperlipidemia, unspecified; D63.1 Anemia in chronic kidney disease; E11.22 Type 2 diabetes mellitus with diabetic chronic kidney disease; E03.9 Hypothyroidism, unspecified; E11.42 Type 2 diabetes mellitus with diabetic polyneuropathy; F32.A Depression, unspecified; D51.0 Vitamin B12 deficiency anemia due to intrinsic factor deficiency; I49.3 Ventricular premature depolarization; I44.0 Atrioventricular block, first degree; G47.33 Obstructive sleep apnea (adult) (pediatric); E87.70 Fluid overload, unspecified; R94.31 Abnormal electrocardiogram [ECG] [EKG]; Z99.2 Dependence on renal dialysis; Z91.15 Patient's noncompliance with renal dialysis; Z79.899 Other long term (current) drug therapy; Z79.02 Long term (current) use of antithrombotics/antiplatelets; Z79.4 Long term (current) use of insulin; Z90.49 Acquired absence of other specified parts of digestive tract; Z98.890 Other specified postprocedural states; Z90.710 Acquired absence of both cervix and uterus; Z98.84 Bariatric surgery status
CPT/HCPCS: 33249; 36415; 71045; 71046; 76937; 80048; 80053; 80069; 83735; 84100; 84484; 85014; 85018; 85025; 93005; 93010; 93283; 93306; 93454; 97166; 97530; 97535; 99152; 99153; 99285-25; A9270; C1721; C1769; C1781; C1894; C1895; C1898; J0360; J0690; J0881; J1644; J2250; J2405; J3010; J7030; J7040; J7050; P9047; Q9967

== ENCOUNTER 2022-09-06 12:51 | Day surgery (SDC) | payer MEDICARE ==
[~2022-09-06] VITALS: Ht 165.1 cm; Wt 104.0 kg
[~2022-09-06 12:51] MED LIST changes: +ATOR80 PO; +Acetaminophen650 M1 PO; +Amiodarone HCl200 MG PO; +CEPH500 PO; +INSULANI SC; +METO25 PO; +TRAM50 PO
[2022-09-06] MEDS ORDERED: HYDR10 PO (13:33)
[2022-09-06] MEDS ORDERED: Amiodarone HCl200 MG PO (13:33)
--- NOTE | 2022-09-06 15:58 | NUR ---
8989 PATEINT RETURNED FROM THE [facility] AND STAFF PHONED SIMONE. UNABLE TO GET DIALYSIS APPONITMENT FOR TODAY BUT WILL BE ABLE TO DIALYSIS IN A.M. AT 0545. IF UNABLE TO USE FISTULA PATIENT IS INSTRUCTED TO COME TO DR. VERA OFFICE AND BE REGISTERED FOR PERMACATH PLACEMENT FOR TOMORROW. SBAR RECEIVED FROM BENJAMIN REDMAN AND YOSSI CHEEK. PATIENT PLACED ON THE MONITOR AND CALL LIGHT IN REACH. SLIP KNOW CLOSURE X TWO AT FISTULA SITE, NO BLEEDING NOTED, NO HEMATOMA NOTED. VVS. LUNCH TRAY SERVED. CALLED [facility] AND UPDATED THEM ON POTENTIAL DISCHARGE TIME OF 1700.
--- NOTE | 2022-09-06 17:11 | NUR ---
SLIP KNOT REMOVED FROM THE FISTULA X TWO AND EUGENE AND TEGADERMS. SMALL AMOUNT OF OOZE NOTED. NOT A STRONG THRILL NOTED. PIV REMOVED. CATH TIP INTACT AND PRESSURE DRESSING APPLIED.
--- NOTE | 2022-09-06 17:16 | NUR ---
PATIETN UP AND TO THE RESTROOM. DRESSED ADN ALL BELONGINGS GATHERED. VSS. DISCHARGED VIA WHEELCHAIR.
--- NOTE | 2022-09-06 17:24 | NUR ---
DISCAHRGED HOME VIA WHEELCHAIR TO OFFICE [facility] CONSULTANT.
== END 2022-09-06 17:15 | disposition home or self-care (01) ==
LOC: MHTC 12:51
DX: T82.898A Other specified complication of vascular prosthetic devices, implants and grafts, initial encounter (principal); Y83.8 Other surgical procedures as the cause of abnormal reaction of the patient, or of later complication, without mention of misadventure at the time of the procedure; I12.0 Hypertensive chronic kidney disease with stage 5 chronic kidney disease or end stage renal disease; N18.6 End stage renal disease; E11.22 Type 2 diabetes mellitus with diabetic chronic kidney disease; E11.40 Type 2 diabetes mellitus with diabetic neuropathy, unspecified; Z79.899 Other long term (current) drug therapy; Z99.2 Dependence on renal dialysis
CPT/HCPCS: 76937; 99152; 99153; C1725; C1769; C1887; C1894; J1644; J2250; J2997; J3010; J7030; Q9967

== ENCOUNTER 2022-09-07 13:11 | Day surgery (SDC) | payer MEDICARE ==
[~2022-09-07] VITALS: Ht 165.1 cm; Wt 104.0 kg
[~2022-09-07 13:11] MED LIST changes: +HYDR10 PO
--- NOTE | 2022-09-07 14:19 | NUR ---
PT PREPPED FOR PERMACATH, DR DAN BY TO DISCUSS PLAN OF CARE, 24G IV L HAND BY JASMYNE Herbert RN,
--- NOTE | 2022-09-07 15:10 | NUR ---
PATIENT ARRIVED TO RECOVERY ROOM CONVERSING APPROPRIATELY. [facility] SITE C/D/I. VSS ON ROOM AIR.
--- NOTE | 2022-09-07 15:35 | NUR ---
PATIENT SITTING UPRIGHT IN BED. PATIENT TOLERATING PO INTAKE WELL.
--- NOTE | 2022-09-07 16:00 | NUR ---
PATIENT DISCHARGE INSTRUCTIONS REVIEWED. ALL QUESTIONS ANSWERED APPROPRIATELY. MEDICATION LIST REVIEWED. PERMACATH SITE C/D/I, SOFT/NONTENDER, NO EVIDENCE OF BLEEDING. VSS ON ROOM AIR. PIV REMOVED, CATHETER INTACT. PATIENT TRANSPORTED TO [facility] VIA WHEELCHAIR AND PATIENT DISCHARGED HOME WITH .
[2022-09-14] MEDS ORDERED: MIDO5 PO (11:19)
[2022-09-14] MEDS ORDERED: ISOSORBIDE MONO30 MG PO (11:19)
[2022-09-14] MEDS ORDERED: ASPI81CH PO (11:20)
[2022-09-14] MEDS ORDERED: FOLI1 PO (11:20)
[2022-09-14] MEDS ORDERED: METO25ER PO (13:39)
== END 2022-09-07 23:32 | disposition home or self-care (01) ==
LOC: MHTC 13:11
DX: I12.0 Hypertensive chronic kidney disease with stage 5 chronic kidney disease or end stage renal disease (principal); N18.6 End stage renal disease; E11.22 Type 2 diabetes mellitus with diabetic chronic kidney disease; J44.9 Chronic obstructive pulmonary disease, unspecified; F41.9 Anxiety disorder, unspecified; F32.A Depression, unspecified
CPT/HCPCS: 36558; 76937; 77001; 99152; 99153; C1750; C1769; C1894; J1644; J2250; J3010; J7030; J7050

== ENCOUNTER 2022-11-12 12:26 | Emergency (ER) | payer MEDICARE ==
[~2022-11-12] VITALS: Ht 165.1 cm; Wt 99.8 kg
[~2022-11-12 12:26] MED LIST changes: +FOLI1 PO; +METO25ER PO; +MIDO5 PO
[2022-11-12 19:06] LABS: BASOPHILS ABSOLUTE AUTO 0.02 K/mm3 (0.00-0.23); BASOPHILS PERCENT AUTO 0 % (0-2); EOSINOPHILS ABSOLUTE AUTO 0.13 K/mm3 (0.00-0.68); EOSINOPHILS PERCENT AUTO 2 % (0-6); Hemoglobin 8.5 g/dL (11.5-16.0); IMMATURE GRAN ABSOLUTE AUTO 0.02 K/mm3 (0.00-0.10); IMMATURE GRAN PERCENT AUTO 0 % (0-1); LYMPHOCYTES ABSOLUTE AUTO 1.37 K/mm3 (0.84-5.20); LYMPHOCYTES PERCENT AUTO 20 % (21-46); MONOCYTES ABSOLUTE AUTO 0.39 K/mm3 (0.16-1.47); MONOCYTES PERCENT AUTO 6 % (4-13); Mean Corpuscular HGB 32.8 pg (26.0-34.0); Mean Corpuscular Volume 97 fL (80-100); Mean Platelet Volume 9.8 fL (9.1-12.4); NEUTROPHILS ABSOLUTE AUTO 5.08 K/mm3 (1.96-9.15); NEUTROPHILS PERCENT AUTO 72 % (41-73); Platelet Count 177 K/mm3 (150-400); RDW Coefficient Variation 13.6 % (11.7-14.2); RDW Standard Deviation 47.5 fL (35.1-46.3); Red Blood Cell Count 2.59 M/mm3 (3.80-5.20); White Blood Cell Count 7.01 K/mm3 (4.00-11.30)
[2022-11-12 19:12] VITALS: BP 130/43
[2022-11-12 19:25] LABS: Albumin, Blood 2.8 g/dL (3.4-5.0); Albumin/Globulin Ratio 0.7 (0.8-1.8); Bilirubin, Total 0.4 mg/dL (0.1-1.0); Bun/Creatinine Ratio 5.4 (12.0-20.0); Calcium, Blood 8.8 mg/dL (8.5-10.1); Creatinine, Blood 5.04 mg/dL (0.40-1.00); Globulin, Blood 3.8 g/dL (2.2-4.0); Potassium, Blood 3.8 mmol/L (3.5-5.5); Total Protein, Blood 6.6 g/dL (6.4-8.2)
== END 2022-11-12 19:54 | disposition home or self-care (01) ==
LOC: ER 12:26
PROVIDERS: Student in an Organized Health Care Education/Training Program
DX: T82.838A Hemorrhage due to vascular prosthetic devices, implants and grafts, initial encounter (principal); R20.0 Anesthesia of skin; R20.9 Unspecified disturbances of skin sensation; I12.0 Hypertensive chronic kidney disease with stage 5 chronic kidney disease or end stage renal disease; E11.22 Type 2 diabetes mellitus with diabetic chronic kidney disease; N18.6 End stage renal disease; E78.5 Hyperlipidemia, unspecified; E05.90 Thyrotoxicosis, unspecified without thyrotoxic crisis or storm; Z99.2 Dependence on renal dialysis; Z79.82 Long term (current) use of aspirin; Z79.02 Long term (current) use of antithrombotics/antiplatelets; Z79.899 Other long term (current) drug therapy; X50.1XXA Overexertion from prolonged static or awkward postures, initial encounter
CPT/HCPCS: 80053; 85025; 86850; 86900; 86901; 93931

== ENCOUNTER → 2022-11-19 | Outpatient (CLI) | payer MEDICARE | END | disposition home or self-care (01) | LOC: LAB SHORT 08:00 → LAB 08:00 | DX: N18.6 End stage renal disease (principal) | CPT/HCPCS: 85018 ==

== ENCOUNTER 2022-11-22 06:34 | Inpatient (IN) | payer MEDICARE ==
[~2022-11-22] VITALS: Ht 165.1 cm; Wt 103.2 kg
[2022-11-22 08:52] LABS: BASOPHILS ABSOLUTE AUTO 0.02 K/mm3 (0.00-0.23); BASOPHILS PERCENT AUTO 0 % (0-2); EOSINOPHILS ABSOLUTE AUTO 0.12 K/mm3 (0.00-0.68); EOSINOPHILS PERCENT AUTO 2 % (0-6); Hemoglobin 8.5 g/dL (11.5-16.0); IMMATURE GRAN ABSOLUTE AUTO 0.03 K/mm3 (0.00-0.10); IMMATURE GRAN PERCENT AUTO 1 % (0-1); LYMPHOCYTES ABSOLUTE AUTO 1.62 K/mm3 (0.84-5.20); LYMPHOCYTES PERCENT AUTO 27 % (21-46); MONOCYTES ABSOLUTE AUTO 0.37 K/mm3 (0.16-1.47); MONOCYTES PERCENT AUTO 6 % (4-13); Mean Corpuscular HGB 31.8 pg (26.0-34.0); Mean Corpuscular HGB Conc 32.7 g/dL (31.5-36.5); Mean Corpuscular Volume 97 fL (80-100); Mean Platelet Volume 9.1 fL (9.1-12.4); NEUTROPHILS ABSOLUTE AUTO 3.95 K/mm3 (1.96-9.15); NEUTROPHILS PERCENT AUTO 65 % (41-73); Platelet Count 177 K/mm3 (150-400); RDW Coefficient Variation 13.8 % (11.7-14.2); RDW Standard Deviation 48.8 fL (35.1-46.3); Red Blood Cell Count 2.67 M/mm3 (3.80-5.20); White Blood Cell Count 6.11 K/mm3 (4.00-11.30)
[2022-11-22 09:10] LABS: International Normalized Ratio 0.99; Prothrombin Time Results 10.4 Sec (9.7-11.5)
[2022-11-22 09:13] LABS: Bun/Creatinine Ratio 5.3 (12.0-20.0); Calcium, Blood 8.7 mg/dL (8.5-10.1); Creatinine, Blood 7.16 mg/dL (0.40-1.00); Magnesium, Blood 2.2 mg/dL (1.6-2.4); Phosphorus, Blood 5.3 mg/dL (2.5-4.9); Potassium, Blood 4.1 mmol/L (3.5-5.5)
[2022-11-22 12:22] VITALS: BP 118/89
[2022-11-22 16:16] VITALS: BP 115/50
--- NOTE | 2022-11-22 17:56 | NUR ---
SHIFT SUMMARY PT UP FROM ED THIS AFTERNOON. ALERT AND ORIENTED, CALLS APPROPRIATELY. PT REMAINS ON RA, INDEPENDENT IN ROOM. PT PENDING PERMACATH REPLACEMENT AND HEMODIALYSIS. VASCULAR AND RENAL CONSULTED, PENDING ARRIVAL. NO C/O PAIN. WILL CONTINUE TO MONITOR. CALL LIGHT WITHIN REACH.
[2022-11-22 19:32] VITALS: BP 87/71
--- NOTE | 2022-11-22 21:32 | NUR ---
PATIENT LEAVING ROOM AND WALKING HALLS. PATIENT WANDERING AROUND OTHER FLOORS AND CAFETERIA. SECURITY AND CHARGE NOTIFIED. FOUND OUTSIDE AT ONE POINT AND SECURITY BROUGHT PATIENT BACK TO ROOM. ANXIOUS AND NOT FOLLOWING DIRECTIONS AT THIS TIME. NEENA.
--- NOTE | 2022-11-22 22:35 | NUR ---
PATIENT OUT OF ROOM AT THIS TIME.
--- NOTE | 2022-11-22 23:49 | NUR ---
PATIENT IN/OUT OF ROOM. IRRITABLE AT TIMES REPORTING WANTS FOOD. HOSPITALIST ELINOR LENTZ PLACED ORDER FOR RENAL DIET FOR A FEW HOURS AND THAN BACK TO NPO >02:00 ON 11/23/22.
[2022-11-23] VITALS (8 sets, daily range): BP systolic 122–145; BP diastolic 36–88
--- NOTE | 2022-11-23 04:06 | NUR ---
SHIFT SUMMARY PATIENT HAD NO ACUTE CHANGES. AXOX 3-4 AND INDEPENDENT IN ROOM AND HALLS. PATIENT LEFT FLOOR AND WALKED TO OTHER FLOORS, CAFETERIA, AND OUTSIDE. ANXIOUS AND NOT ABLE TO JUST STAY IN ROOM. SECURITY CALLED AND PATIENT BROUGHT BACK TO ROOM. DENIES CHEST PAIN, SOB, AND N/V. PIV REMAINS INTACT. TELE MONITOR PACED 70'S. NPO FOR POSSIBLE PROCEDURE. CALL LIGHT IN REACH. BED IN LOWEST POSITION. WILL CONTINUE TO MONITOR UNTIL DAY SHIFT NURSE ASSUMES CARE.
[2022-11-23 05:55] LABS: BASOPHILS ABSOLUTE AUTO 0.03 K/mm3 (0.00-0.23); BASOPHILS PERCENT AUTO 1 % (0-2); EOSINOPHILS ABSOLUTE AUTO 0.15 K/mm3 (0.00-0.68); EOSINOPHILS PERCENT AUTO 2 % (0-6); Hemoglobin 8.8 g/dL (11.5-16.0); IMMATURE GRAN ABSOLUTE AUTO 0.02 K/mm3 (0.00-0.10); IMMATURE GRAN PERCENT AUTO 0 % (0-1); LYMPHOCYTES ABSOLUTE AUTO 1.68 K/mm3 (0.84-5.20); LYMPHOCYTES PERCENT AUTO 26 % (21-46); MONOCYTES ABSOLUTE AUTO 0.44 K/mm3 (0.16-1.47); MONOCYTES PERCENT AUTO 7 % (4-13); Mean Corpuscular HGB 32.1 pg (26.0-34.0); Mean Corpuscular HGB Conc 32.6 g/dL (31.5-36.5); Mean Corpuscular Volume 99 fL (80-100); Mean Platelet Volume 9.3 fL (9.1-12.4); NEUTROPHILS ABSOLUTE AUTO 4.21 K/mm3 (1.96-9.15); NEUTROPHILS PERCENT AUTO 65 % (41-73); Platelet Count 178 K/mm3 (150-400); RDW Standard Deviation 48.8 fL (35.1-46.3); Red Blood Cell Count 2.74 M/mm3 (3.80-5.20); White Blood Cell Count 6.53 K/mm3 (4.00-11.30)
[2022-11-23 06:37] LABS: Albumin, Blood 2.9 g/dL (3.4-5.0); Anion Gap 6 mmol/L (6-16); Blood Urea Nitrogen 44 mg/dL (8-24); CO2, Blood 28 mmol/L (21-32); Calcium, Blood 8.8 mg/dL (8.5-10.1); Chloride, Blood 103 mmol/L (98-108); Glucose, Blood 111 mg/dL (70-99); Phosphorus, Blood 6.1 mg/dL (2.5-4.9); Potassium, Blood 4.2 mmol/L (3.5-5.5); Sodium, Blood 137 mmol/L (136-145)
[2022-11-23 06:38] LABS: Bun/Creatinine Ratio 5.5 (12.0-20.0); Creatinine, Blood 8.06 mg/dL (0.40-1.00); Glomerular Filtration Rate 5 (60-)
--- NOTE | 2022-11-23 16:52 | NUR ---
SHIFT SUMMARY- PT IS A/O, PLESANT AND COOPERATIVE. SHE HAS BEEN NPO THIS SHIFT IN PREPRATION FOR PLACMENT OF A NEW DIALYSIS PORT. DR. DAN SPOKE TO THE PT THIS AFTERNOON AND SAID HE WOULD TAKE HER THIS EVENING. HER BED IS IN THE LOW POSITON AND CALL LIGHT IS WITIN ZOHRA.
[2022-11-24] VITALS (15 sets, daily range): BP systolic 92–185; BP diastolic 45–69
--- NOTE | 2022-11-24 04:04 | NUR ---
SHIFT SUMMERY, PT ARRIVED BACK TO FLOOR AT CHANGE OF SHIFT, PT ATE HER DINNER. PT HAD HER DRG REINFORCED DUE TO DRG ON PT LEAKING ON PT AND PTS GOWN. PT HAD SLEPTVERY WELL MOST OF THE NIGHT. CALL LIGHT IN REACH.
--- NOTE | 2022-11-24 04:43 | NUR ---
nella bui, had checked on pt about [address]g did not appear at that time to be leaking. pt laying with head of bed down, at 0400 trade recruiter called to say pt and pillow case neded changed and a new drg to left side of neck abd filled with blood and blood had drained from under drg to back. claened up pt and placed a presure drg on pt and sat pt hob up. pt alert and making jkes at this time. call light in reach .
--- NOTE | 2022-11-24 05:53 | NUR ---
Drg not workng to stop leakage from incision 5 lb wt placed on top of drg and incision.
[2022-11-24 06:07] LABS: BASOPHILS ABSOLUTE AUTO 0.02 K/mm3 (0.00-0.23); BASOPHILS PERCENT AUTO 0 % (0-2); EOSINOPHILS ABSOLUTE AUTO 0.11 K/mm3 (0.00-0.68); EOSINOPHILS PERCENT AUTO 2 % (0-6); Hematocrit 24.6 % (33.0-51.0); IMMATURE GRAN ABSOLUTE AUTO 0.01 K/mm3 (0.00-0.10); IMMATURE GRAN PERCENT AUTO 0 % (0-1); LYMPHOCYTES ABSOLUTE AUTO 1.27 K/mm3 (0.84-5.20); LYMPHOCYTES PERCENT AUTO 26 % (21-46); MONOCYTES ABSOLUTE AUTO 0.26 K/mm3 (0.16-1.47); MONOCYTES PERCENT AUTO 5 % (4-13); Mean Corpuscular HGB 32.3 pg (26.0-34.0); Mean Corpuscular HGB Conc 32.5 g/dL (31.5-36.5); Mean Corpuscular Volume 99 fL (80-100); Mean Platelet Volume 9.4 fL (9.1-12.4); NEUTROPHILS ABSOLUTE AUTO 3.32 K/mm3 (1.96-9.15); NEUTROPHILS PERCENT AUTO 67 % (41-73); Platelet Count 176 K/mm3 (150-400); RDW Coefficient Variation 13.7 % (11.7-14.2); Red Blood Cell Count 2.48 M/mm3 (3.80-5.20); White Blood Cell Count 4.99 K/mm3 (4.00-11.30)
--- NOTE | 2022-11-24 06:34 | NUR ---
HGB 8.0, HCT 24.6. CRITICAL CREATININE OF 8.06. DR LORE TO CALL DIALISIS RN FOR PT TO HAVE DIALISIS TODAY. PER DR NG.
[2022-11-24 06:48] LABS: Bun/Creatinine Ratio 5.3 (12.0-20.0); Calcium, Blood 8.4 mg/dL (8.5-10.1); Creatinine, Blood 8.76 mg/dL (0.40-1.00); Potassium, Blood 4.3 mmol/L (3.5-5.5)
--- NOTE | 2022-11-24 18:54 | NUR ---
SHIFT SUMMARY S/P PERMACATH PLACEMENT, A/OX4, VSS, TOLERATING PO, INDEPENDENT IN THE ROOM, DIALYSIS TODAY, NEW PERMACATH OOZING AT [facility] SITE JUST ABOVE ITS PLACEMENT SITE, THIS WAS DISCUSSED WITH ATTENDING MD, MESSAGE LEFT WITH [facility] AFTER CONFIRMING WHO PLACED IT. DRESSING CHANGED 5X THIS SHIFT, PT DENIES DIZZINESS WHEN AMBULATING.
--- NOTE | 2022-11-24 23:23 | NUR ---
AT ABOUT 2030 PT WAS AMBULATING IN HALLS AND HAD A BLOODY GOWN AND DRG SATURATED WITH BLOOD AND LEAKING. OLD DRG TAKEN OFF AND PRESSURE DRG APPLYED, TALKED TO PT ABOUT RESTING AND NOT AMBULATING AROUNG WHILE INCISION FROM NEWLY PLACED PERMACATH LEAKING. PT VERY SAD AND FEELING VERY DEFEATED. PT WAS ALMOST IN TEARS AND TRYING NOT TO CRY. GOT PT SOME FOOD, PT TRYED TO EAT BUT SAID FOOD TASTED LIKE NOTHING. PT TOOK A FEW BITES, AND THEN LAYED DOWN IN BED. PT STATED HER RIGHT HAND WAS VERY PAINFULL ESPECIALY AFTER THE 2ND FISTULA WAS PLACED AND FAILED. AREA FEELS HARD. CALL LIGHT IN REACH.
--- NOTE | 2022-11-25 03:12 | NUR ---
SHIFT SUMMERY, PT FEELING A LITTLE BETTER NOW ERALIER PT NEAR TEARS, PAINFULL AND FRUSTRATED. PT SAIS SHE DID NOT GET LUNCH DUE TO DIALISIS AND OTTO HAD A PUDDING, GOT PT SOMETHING ELSE TO EAT PT TOOK A VERY FEW BITEDS. PT STATED SHE HAS NO TASTE THINGS HAVE NO FLAVOR . SHE CAN ONLY SOMETIMES TASTE SWEET OR SALTY. TEXTURE SEEME TO BE A PROB WHEN YOU CANT TASTE. PT SLEPT FOR A LITTLE PT AWOKE AND DRG WAS CHANGE DUE TO IT WAS STARTING TO COME THROUGH THE DRG. PT C/O PAIN TO HER RIGHT HAND AND ARM, HEATING PAD PLACED ON PTS ARM AND HAND AND ARM ELEVATED WITH PILLOWS. CALL LIGHT IN REACH.
[2022-11-25 04:24] VITALS: BP 147/56
[2022-11-25 04:46] LABS: Hematocrit 24.4 % (33.0-51.0); Hemoglobin 8.1 g/dL (11.5-16.0)
[2022-11-25 05:15] LABS: Albumin, Blood 2.6 g/dL (3.4-5.0); Anion Gap 7 mmol/L (6-16); Blood Urea Nitrogen 21 mg/dL (8-24); Bun/Creatinine Ratio 3.9 (12.0-20.0); CO2, Blood 30 mmol/L (21-32); Calcium, Blood 8.1 mg/dL (8.5-10.1); Chloride, Blood 99 mmol/L (98-108); Creatinine, Blood 5.42 mg/dL (0.40-1.00); Glomerular Filtration Rate 8 (60-); Glucose, Blood 100 mg/dL (70-99); Phosphorus, Blood 4.5 mg/dL (2.5-4.9); Potassium, Blood 3.9 mmol/L (3.5-5.5); Sodium, Blood 136 mmol/L (136-145)
[2022-11-25 07:32] VITALS: BP 132/56
[2022-11-25 13:51] VITALS: BP 124/35
[2022-11-25 15:26] VITALS: BP 144/48
[2022-11-25 17:33] VITALS: BP 136/56
--- NOTE | 2022-11-25 17:39 | NUR ---
DRESSING ON LEFT CHEST WALL CHANGED. DRESSING HAD MODERATE AMOUNT OF DRIED, HARD BLOOD. NO WET OR MOIST DRAINAGE NOTED. CLEAN DRESSING PLACED.
--- NOTE | 2022-11-25 19:34 | NUR ---
SHIFT SUMMARY PT A&OX4 AND PLEASANT. NO ACUTE CHANGES. DRESSING CHANGED ON LEFT CHEST WALL. DRESSING REMAINS C/D/I. PT STATES HEAT PACK HELPS WITH PAIN IN RIGHT ARM. DIASTOLIC BP WAS 35 IN AFTERNOON. MIDODRINE GIVEN PER EMAR. DR IRENE NOTIFIED OF BP, NO ORDERS OR PARAMETERS GIVEN. BED IN LOWEST POSITION AND CALL LIGHT IN REACH.
[2022-11-25 20:28] VITALS: BP 135/89
[2022-11-26] VITALS (16 sets, daily range): BP systolic 91–124; BP diastolic 38–78
--- NOTE | 2022-11-26 03:38 | NUR ---
SHIFT SUMMERY, PT SLEEPING WELL IN BED.PT SEEMS IN A MUCH BETTER MOOD TONIGHT AND IN A LOT LESS PAIN. CALL LIGHT IN REACH.
[2022-11-26 05:10] LABS: Hematocrit 26.7 % (33.0-51.0); Hemoglobin 8.8 g/dL (11.5-16.0)
[2022-11-26 05:28] LABS: Albumin, Blood 2.7 g/dL (3.4-5.0); Anion Gap 7 mmol/L (6-16); Blood Urea Nitrogen 25 mg/dL (8-24); Bun/Creatinine Ratio 3.9 (12.0-20.0); CO2, Blood 30 mmol/L (21-32); Calcium, Blood 8.3 mg/dL (8.5-10.1); Chloride, Blood 98 mmol/L (98-108); Creatinine, Blood 6.46 mg/dL (0.40-1.00); Glomerular Filtration Rate 6 (60-); Glucose, Blood 107 mg/dL (70-99); Phosphorus, Blood 5.3 mg/dL (2.5-4.9); Potassium, Blood 4.1 mmol/L (3.5-5.5); Sodium, Blood 135 mmol/L (136-145)
--- NOTE | 2022-11-26 08:50 | NUR ---
THIS RN CONTACTED DIALYSIS NURSE INSTRUCTED TO HOLD ALL PT MEDS THIS AM
== END 2022-11-26 17:55 | disposition home or self-care (01) | DRG 314 ==
LOC: ER 06:34 → MEDS 06:35
PROVIDERS: Family Medicine; Internal Medicine; Internal Medicine Nephrology; Student in an Organized Health Care Education/Training Program; ADMIT Internal Medicine
PROC: 0JH63XZ Insertion of Tunneled Vascular Access Device into Chest Subcutaneous Tissue and Fascia, Percutaneous Approach (ICD-10-PCS; principal; 2022-11-23)
PROC: 02HV33Z Insertion of Infusion Device into Superior Vena Cava, Percutaneous Approach (ICD-10-PCS; 2022-11-23)
PROC: B518ZZA Fluoroscopy of Superior Vena Cava, Guidance (ICD-10-PCS; 2022-11-23)
PROC: B548ZZA Ultrasonography of Superior Vena Cava, Guidance (ICD-10-PCS; 2022-11-23)
PROC: 0JPT3XZ Removal of Tunneled Vascular Access Device from Trunk Subcutaneous Tissue and Fascia, Percutaneous Approach (ICD-10-PCS; 2022-11-23)
PROC: 5A1D70Z Performance of Urinary Filtration, Intermittent, Less than 6 Hours Per Day (ICD-10-PCS; 2022-11-24)
DX: T82.838A Hemorrhage due to vascular prosthetic devices, implants and grafts, initial encounter (principal); N18.6 End stage renal disease; I12.0 Hypertensive chronic kidney disease with stage 5 chronic kidney disease or end stage renal disease; N25.81 Secondary hyperparathyroidism of renal origin; E87.1 Hypo-osmolality and hyponatremia; E11.22 Type 2 diabetes mellitus with diabetic chronic kidney disease; D63.1 Anemia in chronic kidney disease; E78.5 Hyperlipidemia, unspecified; E83.39 Other disorders of phosphorus metabolism; E03.9 Hypothyroidism, unspecified; E11.51 Type 2 diabetes mellitus with diabetic peripheral angiopathy without gangrene; E11.42 Type 2 diabetes mellitus with diabetic polyneuropathy; Y84.1 Kidney dialysis as the cause of abnormal reaction of the patient, or of later complication, without mention of misadventure at the time of the procedure; F32.A Depression, unspecified; G47.30 Sleep apnea, unspecified; M79.601 Pain in right arm; Z90.710 Acquired absence of both cervix and uterus; Z90.49 Acquired absence of other specified parts of digestive tract; Z99.2 Dependence on renal dialysis; Z98.890 Other specified postprocedural states; Z79.82 Long term (current) use of aspirin; Z79.890 Hormone replacement therapy; Z79.899 Other long term (current) drug therapy; Z95.0 Presence of cardiac pacemaker; Z98.84 Bariatric surgery status; Z79.02 Long term (current) use of antithrombotics/antiplatelets
CPT/HCPCS: 36415; 36558; 36589; 76937; 77001; 80048; 80069; 83735; 84100; 84443; 85014; 85018; 85025; 85610; 85730; 93971; 94660; 99152; 99153; 99284-25; A9270; C1750; C1769; C1894; G0378; J0881; J1644; J2250; J3010; J7040; J7050

== ENCOUNTER 2023-06-08 15:38 | Emergency (ER) | payer MEDICARE ==
[~2023-06-08] VITALS: Ht 165.1 cm; Wt 99.8 kg
[2023-06-08 15:54] VITALS: BP 145/79
== END 2023-06-08 16:05 | disposition home or self-care (01) ==
LOC: ER 15:38
DX: I77.0 Arteriovenous fistula, acquired (principal); I12.0 Hypertensive chronic kidney disease with stage 5 chronic kidney disease or end stage renal disease; E11.22 Type 2 diabetes mellitus with diabetic chronic kidney disease; N18.6 End stage renal disease; Z99.2 Dependence on renal dialysis; I73.9 Peripheral vascular disease, unspecified; E78.5 Hyperlipidemia, unspecified; E05.90 Thyrotoxicosis, unspecified without thyrotoxic crisis or storm; G47.30 Sleep apnea, unspecified; E11.42 Type 2 diabetes mellitus with diabetic polyneuropathy; Z91.09 Other allergy status, other than to drugs and biological substances; Z79.02 Long term (current) use of antithrombotics/antiplatelets; Z79.899 Other long term (current) drug therapy
CPT/HCPCS: 99282